=== PATIENT | female | born 1945 | race Caucasian/White ===

== ENCOUNTER → 2017-03-03 | Outpatient (CLI) | payer BC, MEDICARE ==
[~2017-03-03] MED LIST: ALEVE220 MG PO; BYSTOLIC20 MG PO; CALCIUM + D 6001 TAB PO; CALCIUM PO; CLEOCIN HCL300 MG PO; DARVOCET N PO; ECOTRIN81 MG PO; ESTRACE1 MG OR; FLEXERIL10 MG PO; FUROSEMIDE 20MG20 MG FT; IBU800 M1 PO; LASIX20 MG PO; LEVOTHYROXINE0.05 MG PO; LORTAB 5/500 501 TAB PO; MAGNESI PO; MEDROL 4MG. DOSE4 MG PO; MULTIVITAMIN1 TA1 PO; MULTIVITAMIN1 TA2 PO; PAROXETINE40 MG PO; PAXIL20 MG NG; PREDNICOT10 MG PO; SYNTHROID0.025 MG PO; ZOVIRAX800 MG PO
[2017-03-03 12:25] LABS: BUN 18 mg/dL (7-18)
[2017-03-03 12:32] LABS: GFR (ESTIMATED) 45 ML/MIN (59-)
[2017-03-04 08:19] LABS: HEMOGLOBIN 12.1 g/dL (12.2-16.2); LYMPH % 20.5 % (10-50.0)
[2017-03-04 08:20] LABS: LYMPH # 1.1 K/mm3 (0.7-4.5)
[2017-03-04 10:24] LABS: NEUTROPHILS 60 % (42-76)
== END ==
LOC: LAB 10:39
PROVIDERS: Internal Medicine Adolescent Medicine
DX: D64.9 Anemia, unspecified (principal); E03.9 Hypothyroidism, unspecified; E78.5 Hyperlipidemia, unspecified; I10 Essential (primary) hypertension

== ENCOUNTER → 2017-07-16 | Outpatient (CLI) | payer BC, MEDICARE ==
[2017-07-16 09:13] LABS: HEMOGLOBIN 12.2 g/dL (12.2-16.2)
[2017-07-16 09:14] LABS: LYMPH # 1.2 K/mm3 (0.7-4.5); LYMPH % 17.1 % (10-50.0)
[2017-07-16 11:26] LABS: BUN 19 mg/dL (7-18)
[2017-07-16 11:28] LABS: GFR (ESTIMATED) 40 ML/MIN (59-)
== END ==
LOC: LAB 08:28
PROVIDERS: Internal Medicine Adolescent Medicine
DX: E78.5 Hyperlipidemia, unspecified (principal); I10 Essential (primary) hypertension; I25.119 Atherosclerotic heart disease of native coronary artery with unspecified angina pectoris; E03.9 Hypothyroidism, unspecified